=== PATIENT | male | born 1950 | race Caucasian/White ===

== ENCOUNTER 2016-04-07 21:57 | Inpatient (IN) ==
--- NOTE | 2016-04-07 22:48 | Emergency Department Note ---
IJael Kasabria, am scribing for, and in the presence of, Mario Rhodes MD 22:41. ICarmelo Robert M, MD, personally performed the services described in this documentation, ascribed by Giovana Elder in my presence, and it is both accurate and complete . Arrival - Arrival Chief Complaint: Fever ED Nursing Triage Note: C/O Generalized weakness/ Weight loss of approx 40 pounds over the past month. Pt was seen in clinic a couple of weeks ago for the same symptoms and was scheduled for CT Abd/Pelvis which he hasn't had yet. Pt reports that when he woke up he just felt worse. Mode of Arrival: Stretcher Limitations: No Limitations Source: Patient - History of Present Illness HPI Narrative: Pt is a 66 y/o white male presenting to the ED with c/o generalized weakness, weight loss of 40 pounds in 6 weeks, and fever of 103. Pt states this morning it onset as weakness so he laid down. He then woke up with trouble breathing so he got his brother to call EMS. He received fluids and states he now feels better. Pt states his symptoms on February 02, 2016 and have gotten worse. Pt recalls placing towels on his bed due to diaphoresis at night; he states when he wakes the towels are soaked. He received a CT scan without contrast on March 27, 2016 which revealed an abscess to his kidney. Pt was placed on antibiotics because of infection; the course was completed one week ago and now he states the symptoms of weakness have returned. He denies abdominal pain, back pain, FRANK, vision change, dysuria, hematuria, and flank tenderness. PMHx consist of diabetes. Consistency: constant Severity: moderate Allergies/Adverse Reactions: Allergies Allergy/AdvReac Type Severity Reaction Status Date / Time No Known Allergies Allergy Unverified 04/07/16 22:12 Home Medications: Home Medications Medication Instructions Recorded Confirmed Type Lisinopril/Hydrochlorothiazide 2 each PO DAILY 04/07/16 04/07/16 History [Lisinopril-Hctz 20-12.5 mg Tab] Metformin HCl 500 mg PO BID 04/07/16 04/07/16 History Pravastatin [Pravachol] 20 mg PO BEDTIME 04/07/16 04/07/16 History amLODIPine [Norvasc] 10 mg PO DAILY 04/07/16 04/07/16 History Review of System - Review of System 12 point system: reviewed and no additional remarkable complaints except as stated - Review of System Constitutional: Present: chills, diaphoresis (primarily at night ), fever (103) , weakness Eyes: Absent: vision change Head/Ears/Nose/Throat: Absent: earache, nasal drainage, sore throat Respiratory: Absent: cough Cardiovascular: Absent: chest pain, dyspnea on exertion, syncope Gastrointestinal: Absent: abdominal pain, nausea, vomiting, diarrhea Genitourinary male: Absent: dysuria Musculoskeletal: Absent: arm pain, back pain, leg pain, neck pain Skin: Absent: rash, lesions Neurological: Present: weakness. Absent: headache, numbness, confusion, vertigo Psychiatric: Absent: anxiety, depression Endocrine: Absent: fatigue Hematological/Lymphatic: Absent: easy bleeding Allergic/Immunologic: Absent: facial swelling Medical,Surgical,& Family Hx - Medical History Endocrine: History of: Diabetes Mellitus (IDDM) - Social History Smoking Status: Never smoker Frequency of Alcohol Use: None Type of Drug Use: None Exam Vital Signs: Vital Signs Temperature 99.2 F 04/07/16 21:57 Pulse Rate 89 04/07/16 21:57 Respiratory Rate 20 04/07/16 21:57 Blood Pressure 109/76 04/07/16 21:57 O2 Sat by Pulse Oximetry 98 04/07/16 21:57 - General General appearance: alert, in no apparent distress - Head Head exam: Present: atraumatic, normocephalic, normal inspection - Eye Eye exam: Present: normal appearance, PERRL, EOMI - ENT ENT exam: Present: normal exam, normal oropharynx, mucous membranes moist, TM's normal bilaterally, normal external ear exam - Neck Neck exam: Present: normal inspection, full ROM, trachea midline. Absent: tenderness - Chest Chest inspection: Present: normal inspection, symmetric chest wall rise. Absent : tenderness - Respiratory Respiratory exam: Present: normal lung sounds bilaterally - Cardiovascular Cardiovascular exam: Present: regular rate, normal rhythm, normal heart sounds. Absent: murmur - Abdominal Exam Abdominal exam: Present: soft, normal bowel sounds. Absent: distention, tenderness - Extremities Exam Extremities exam: Present: normal inspection, full ROM, normal capillary refill. Absent: tenderness, pedal edema, calf tenderness - Back Exam Back exam: Present: normal inspection, full ROM. Absent: tenderness - Neurological Exam Neurological exam: Present: alert, oriented X3, CN II-XII intact, normal gait, reflexes normal - Psychiatric Psychiatric exam: Present: normal affect, normal mood - Skin Skin exam: Present: warm, dry, intact, normal color. Absent: rash, diaphoresis Course - Consultations Consultation #1: I spoke with Dr. Morales who is the urologist business administration professor and he recommends having the patient admitted to hospitalist. He says he will be happy to consult. Time: 22:47 Consultation #2: The hospitalist will evaluate and admit the patient. Time: 22:47 Disposition Clinical Impression: right renal abscess superior pole Case discussed with: patient, patient's family Disposition: Still a Patient Condition: Stable Time of Disposition: 22:48
[2016-04-08] MEDS ORDERED: DEXTROSE 50% 25 GM/50 ML VIAL IV PRN (01:01)
[2016-04-08] MEDS ORDERED: BISACODYL 5 MG TABLET PO PRN (01:01)
[2016-04-08] MEDS ORDERED: ONDANSETRON 4 MG/2 ML VIAL IV PRN (01:01)
[2016-04-08] MEDS ORDERED: GLUCAGON 1 MG VIAL IM PRN (01:01)
--- NOTE | 2016-04-08 01:13 | Hospitalist History & Physical ---
Assessment and Plan (1) Right renal mass Status: Acute Current Visit: Yes (2) Renal abscess, right Status: Acute Current Visit: Yes (3) Sepsis Status: Acute Current Visit: Yes (4) Type 2 diabetes mellitus Status: Acute Current Visit: Yes (5) Hx of essential hypertension Status: Acute Assessment and plan: Plan: Start IV fluids, broad-spectrum IV antibiotics, obtain blood and urine cultures. We'll consult urology for further workup and recommendations. Supportive care for pain/nausea/fever. Current Visit: Yes History of Present Illness Chief complaint: transfered with fever, R renal mass poss neoplasm or abscess History of present illness: Mr. Morales is a 66 year old male with hypertension and type 2 diabetes, who is here feeling weak, reports 40 lbs wt loss since january, drenching night sweats and fever the past 2 weeks. He states he took antibiotics prescribed by his doctor a week ago and felt better for a short time, however is now back to "feeling weak and ill." He had a temperature of up to 103 at the outside hospital and was tachycardic, however this is improved with fluids and Tylenol. He is currently afebrile in the emergency room. He reports occasional right- sided flank pain, no dysuria. He has reported lack of appetite. A CT abdomen and pelvis showed a complex cystic and solid right upper pole renal mass consistent with neoplasm versus abscess. He does have an elevated white count and fever. Home Medications Medication Instructions Recorded Confirmed Type Lisinopril/Hydrochlorothiazide 2 each PO DAILY 04/07/16 04/07/16 History [Lisinopril-Hctz 20-12.5 mg Tab] Metformin HCl 500 mg PO BID 04/07/16 04/07/16 History Pravastatin [Pravachol] 20 mg PO BEDTIME 04/07/16 04/07/16 History amLODIPine [Norvasc] 10 mg PO DAILY 04/07/16 04/07/16 History Allergies Allergy/AdvReac Type Severity Reaction Status Date / Time No Known Allergies Allergy Unverified 04/07/16 22:12 Medical,Surgical,& Family Hx - Medical History Cardio: History of: Hypertension Endocrine: History of: Diabetes Mellitus (IDDM) - Surgical History HEENT Surgeries: Surgical HX of: Tonsilectomy & Adenoidectomy Abdominal Surgeries: Surgical HX of: Appendectomy - Family History Family History: noncontributory - Social History Smoking Status: Never smoker Frequency of Alcohol Use: None Type of Drug Use: None Marital Status: Unknown Functional capacity: independent ambulation Review of systems: A 12 point review of systems is negative except as specified in the HPI Exam - Constitutional Vitals: Period Temp Pulse Resp BP Sys/Mendoza Pulse Ox Last 24 Hr 99.2 F-99.2 F 78-89 18-20 90-114/48-76 93-98 Exam: EXAM: CONSTITUTIONAL: non toxic, NAD HEENT: NC, AT, OP benign, ETIENNE, EOMI CV: RRR no m/g/r RESP: clear B/L, no w/r/r GI: abd soft, NT, ND, +bowel sounds, minimal right-sided flank pain to tenderness INTEGUMENTARY: no lesions or rash EXTREMITIES: no c/c/e NEURO: no focal deficits PSYCH: unremarkable, A/O x3 Results - Labs CBC & BMP: 04/08/16 02:22 04/08/16 02:22 Lab Results: I have reviewed the past 24 hour labs (outside labs reviewed) - Diagnostic Findings Procedure: CT Abdomen and Pelvis: image reviewed by me, report reviewed by me
[2016-04-08] MEDS: SODIUM CHLORIDE 0.9% 1,000 ML IV SCH ×2 (02:33→10:57)
[2016-04-08] MEDS: PIPERACILLIN/TAZOBACTAM 3,375 MG in SODIUM CHLORIDE 0.9% 100 ML IV SCH ×3 (02:33→18:23)
[2016-04-08 02:36] LABS: Basophils # 0.1 10*3/uL (0.0-0.2); Basophils % 0.8 % (0.0-0.8); Eosinophils % 0.1 % (0.00-10.9); Hematocrit 40.7 VOL% (42.0-52.0); Hemoglobin 13.2 GM/DL (14.0-18.0); Immature Granulocytes % 0.3 %; Immature Granulocytes Absolute 0.03 #; Lymphocytes # 1.2 10*3/uL (1.4-4.0); Lymphocytes % 11.9 % (21.2-54.2); Mean Corpuscular HGB Conc 32.4 GM/DL (32-36); Mean Corpuscular Hemoglobin 28 PG (27-34); Mean Corpuscular Volume 86.8 FL (87-102); Mean Platelet Volume 9.2 FL (9.6-12.0); Monocytes # 0.8 10*3/uL (0.11-0.8); Monocytes % 7.5 % (1.7-12.7); Neutrophils # 8.1 10*3/uL (1.4-7.4); Neutrophils % 79.4 % (38.7-73.9); Platelet Count 380 T/CUMM (130-400); Red Blood Count 4.69 MC/CUMM (3.8-5.5); Red Cell Distribution Width 13.6 % (9.3-17.3); White Blood Count 10.2 T/CUMM (4-12)
[2016-04-08 03:01] LABS: Albumin 3.2 G/DL (3.4-5.0); Bilirubin,Total 0.9 MG/DL (0.2-1.0); Calcium 9.2 MG/DL (8.5-10.1); Osmolality,Calculated 280.3 MOS/KG (273-304); Potassium 4.2 MMOL/L (3.5-5.1); Total Protein 7.8 G/DL (6.4-8.3)
[2016-04-08] MEDS: ACETAMINOPHEN 325 MG TABLET PO PRN (05:33)
[2016-04-08] MEDS ORDERED: VANCOMYCIN INJ 1,000 MG in SODIUM CHLORIDE 0.9% 250 ML IV SCH (06:30)
[2016-04-08] MEDS ORDERED: IBUPROFEN 600 MG TABLET PO ONE (06:45)
--- NOTE | 2016-04-08 08:32 | CT Report ---
Exam: CT abdomen pelvis w con Date: 04/08/2016 4:00 AM Comparison: 04/07/2016 Indication: Right renal mass, fever Technique: Sequential axial scans of the abdomen and pelvis were obtained following the injection of 100 cc Omnipaque 350. Coronal and sagittal 2-D reconstructions were obtained. Total DLP: 2115.90 Findings: The heart is minimally enlarged with cardiac fat pads and coronary artery calcifications. Minimal atelectasis/infiltration/scarring especially in the left lower lobe. The liver is normal in size with fatty infiltration. No masses, dilated ducts, or calcified gallstones are identified. The spleen is borderline size to minimally enlarged. The pancreas, adrenal glands, and left kidney have an unremarkable appearance. No renal or ureteral calculi are identified. 62 x 57 x 57 mm solid appearing right upper pole renal mass with prominent adjacent vasculature. No air within the finding. Calcification in the wall of the nondilated abdominal aorta with no adjacent adenopathy. Very small hiatal hernia with no dilatation of the small bowel. Diverticulosis of the colon with no evidence of diverticulitis or free air. Prior appendectomy. Minimal fluid and/or soft tissue stranding in the mesentery in the left abdominal location just anterior to lower pole of the left kidney. The prostate measures 50 mm in diameter. No definite urinary bladder pathology is identified. Degenerative changes are noted. Impression: 62 x 57 x 57 mm solid mass like density in the upper pole of the right kidney. This finding is most consistent with renal cell carcinoma and less likely renal abscess. The mass appears necrotic with increased vascularity and no invasion of the right renal vein. Minimal cardiomegaly with coronary artery calcifications. Increased fat deposition including fatty infiltration of the liver. The spleen is borderline size to minimally enlarged. Very small hiatal hernia, diverticulosis of colon, and prior appendectomy. Minimal fluid/soft tissue stranding in the mesentery in the left abdominal location just anterior to the lower pole of the left kidney which could be related to possible mesenteritis, etc. PROCEDURE INTERPRETED AT [facility] DEPARTMENT OF RADIOLOGY Final Report Signed by: Dr. Lilliam Ewing
[2016-04-08] MEDS: INSULIN REGULAR 100 UNIT/ML SUBCUT SCH ×4 (10:54→20:31)
[2016-04-08] MEDS: VANCOMYCIN INJ 1,750 MG in SODIUM CHLORIDE 0.9% 500 ML IV SCH ×2 (10:55→20:16)
[2016-04-08] MEDS: PANTOPRAZOLE 40 MG TABLET PO SCH (10:57)
[2016-04-08] MEDS: MORPHINE 2 MG/1 ML SYRINGE IV PRN (10:58)
--- NOTE | 2016-04-08 16:01 | Urology Consultation ---
Assessment and Plan - Time spent with patient Time spent with patient: Greater than 30 minutes Time spent discussing smoking cessation with patient: more than 10 minutes (1) Right renal mass Status: Acute Assessment and plan: I highly suspect that this right renal mass is a necrotic solid right renal cell carcinoma but could be other things including possibly abscess but I believe it is cancer. He has fever, night sweats, and recent weight loss and fatigue could all be associated with this cancer. His blood sugar is not exceedingly [id number] therefore making abscess less likely. It is also possible the he does independently have an infection somewhere causing this fever although his white blood cell count is not significantly elevated. Thank you for this consult. Urology will follow while in house. I have spoken with the patient and would plan on a nonemergent basis to have him follow up with Dr. Bullock to plan for definitive care of this right solid renal mass. Please call with any questions. Current Visit: Yes History of Present Illness - Data of Consult Patient: new to practice Consult date: 04/08/16 Requesting Physician: Gary Garg - Consult Narrative Reason for consult: right renal mass History of present illness: Mr. Morales is a 66 year old male Who presented to an outside hospital yesterday afternoon with a history of feeling progressively weaker over the last 2 weeks along with having fever. He has intermittent right flank pain. He was transferred to [facility] for further evaluation and definitive care. He has had a 40 pound weight loss since January. He has had night sweats and intermittent fever over the last 2 weeks and felt progressively weaker. Otherwise he has no other associated symptoms. Nothing seems to make his right flank discomfort better or worse. When he does have this pursued discomfort it is dull and intermittent. He had a CT scan notable for a right renal mass. Urology was consulted for further definitive care by Dr. Garg and the hospital team. CC: Mariah Clark MD - Home Medications and Allergies Home Medications: Home Medications Medication Instructions Recorded Confirmed Type Lisinopril/Hydrochlorothiazide 2 each PO DAILY 04/07/16 04/08/16 History [Lisinopril-Hctz 20-12.5 mg Tab] Metformin HCl 500 mg PO BID 04/07/16 04/08/16 History Pravastatin [Pravachol] 20 mg PO BEDTIME 04/07/16 04/08/16 History amLODIPine [Norvasc] 10 mg PO DAILY 04/07/16 04/08/16 History Allergies/Adverse Reactions: Allergies Allergy/AdvReac Type Severity Reaction Status Date / Time No Known Allergies Allergy Unverified 04/07/16 22:12 - Constitutional Constitutional: Present: as per HPI, lethargy, malaise, night sweats, weakness, weight loss - EENT Eyes: Present: as per HPI Ears: Present: as per HPI Nose, mouth and throat: Present: as per HPI - Cardiovascular Cardiovascular: Present: as per HPI - Respiratory Respiratory: Present: as per HPI - Gastrointestinal Gastrointestinal: Present: as per HPI - Genitourinary Genitourinary: Present: as per HPI - Musculoskeletal Musculoskeletal: Present: as per HPI - Neurological Neurological: Present: as per HPI - Psychiatric Psychiatric: Present: as per HPI - Endocrine Endocrine: Present: as per HPI - Hematologic/Lymphatic Hematologic/Lymphatic: Present: as per HPI Exam - Constitutional Vitals: Period Temp Pulse Resp BP Sys/Mendoza Pulse Ox Last 24 Hr 98.9 F-100.4 F 102-121 16-20 114-132/67-87 97-99 General appearance: normal weight, no acute distress - Head Head exam: Present: normal inspection, atraumatic - Eye Eye exam: Present: EOMI Pupils: Present: ETIENNE - ENT ENT exam: Present: normal exam, normal external ear exam, normal oropharynx - Neck Neck exam: Present: normal inspection - Respiratory Respiratory exam: Present: clear to auscultation bilaterally - Cardiovascular Cardiovascular exam: Present: regular rate and rhythm - GI/Abdominal GI/Abdominal exam: Present: normal bowel sounds, soft - Genitourinary Genitourinary: scrotum without lesions, cysts, edema or rash, penis with no lesions or discharge - Extremities Exam Extremities exam: Present: normal inspection, full ROM - Back Exam Back exam: Present: normal inspection - Neurological Exam Neurological exam: Present: alert, oriented X3 - Psychiatric Psychiatric exam: Present: normal affect, normal mood - Skin Skin exam: Present: normal color, dry Results - Labs CBC & BMP: 04/08/16 02:22 04/08/16 02:22 Lab Results: I have reviewed the past 24 hour labs - Diagnostic Findings Procedure: CT Abdomen and Pelvis: report reviewed by me (I reviewed the CT notable for a 6.2 cm solid necrotic upper pole exophytic renal mass. It has hypervascularity adjacent to it within the perinephric fat.)
--- NOTE | 2016-04-08 16:31 | ECHO Report ---
Brock Morales Exam Date: 04/08/2016 10:59 Referring Physician: Technologist: Arina CRENSHAW Age: 66 Ht (in): Wt (lb): Gender: M Exam Location: [facility] Echo Indications: HTN, Diabetes, Sepsis, Renal Mass BP: / HR: Rhythm: Sinus Technical Quality: Average IMPRESSIONS Left ventricular ejection fraction is estimated at 50-55%. Grade II diastolic dysfunction Mildly to moderate concentric left ventricular hypertrophy with diastolic dysfunction. Tricuspid regurgitation velocities suggest a PAP of 11 mmHg + RAP. MEASUREMENTS (Male / Female) Normal Values 2D ECHO LV Diastolic Diameter PLAX 4.5 cm 4.2 - 5.9 / 3.9 - 5.3 cm LV Systolic Diameter PLAX 3.3 cm LV Fractional Shortening PLAX 25.8 % IVS Diastolic Thickness 1.4 cm 0.6 - 1.0 / 0.6 - 0.9 cm LVPW Diastolic Thickness 1.3 cm 0.6 - 1.0 / 0.6 - 0.9 cm RV Internal Dim ED PLAX 3.6 cm Aortic Root Diameter 3.0 cm LA Systolic Diameter LX 3.9 cm 3.0 - 4.0 / 2.7 - 3.8 cm DOPPLER TR Peak Velocity 164.0 cm/s TR Peak Gradient 10.8 mmHg FINDINGS Left Ventricle Mildly to moderate concentric left ventricular hypertrophy with diastolic dysfunction. Left ventricular ejection fraction is estimated at 50-55%. Right Ventricle Moderately increased right ventricular size. Right Atrium The right atrium is mildly enlarged. Left Atrium Normal left atrial size. Mitral Valve Mildly thickened mitral valve with mild mitral regurgitation. Aortic Valve Aortic valve sclerosis without stenosis or regurgitation. Tricuspid Valve Morphologically normal tricuspid valve. Mild tricuspid valve regurgitation. Tricuspid regurgitation velocities suggest a PAP of 11 mmHg + RAP. Pulmonic Valve Morphologically normal pulmonic valve. Pericardium Trivial pericardial effusion. Aorta Normal size aortic root and proximal ascending aorta. Angelina Marroquin (Electronically Signed) Final Date: 08 April 2016 14:58
[2016-04-08] MEDS: PRAVASTATIN 20 MG TABLET PO SCH (20:40)
[2016-04-09] MEDS: PIPERACILLIN/TAZOBACTAM 3,375 MG in SODIUM CHLORIDE 0.9% 100 ML IV SCH ×3 (07:24→17:00)
[2016-04-09] MEDS: PANTOPRAZOLE 40 MG TABLET PO SCH (08:57)
[2016-04-09] MEDS: INSULIN REGULAR 100 UNIT/ML SUBCUT SCH ×4 (08:57→22:08)
[2016-04-09] MEDS: VANCOMYCIN INJ 1,750 MG in SODIUM CHLORIDE 0.9% 500 ML IV SCH (13:25)
--- NOTE | 2016-04-09 17:36 | Hospitalist Progress Note ---
Assessment and Plan (1) Right renal mass Status: Acute Assessment and plan: due to possible necrotic solid right renal cell carcinoma to r/o abscess Urology is following.Dr Bullock will be seeing in am to plan for definitive care of this right solid renal mass. Current Visit: Yes (2) Type 2 diabetes mellitus Status: Acute Assessment and plan: stable, continue with current meds Current Visit: Yes (3) Hx of essential hypertension Status: Acute Assessment and plan: stable Current Visit: Yes (4) Sepsis Status: Acute Assessment and plan: this has been ruled out BC-negative, WBC-normal, no fever. plan UA, UC decelerate antibiotics Current Visit: Yes Hospitalist: Subjective Interval history: Patient seen. No new issues. Exam - Constitutional Vitals: Period Temp Pulse Resp BP Sys/Mendoza Pulse Ox Last 24 Hr 97.9 F-98.4 F 79-86 19-20 120-146/63-82 97-98 General appearance: no acute distress - Head Head exam: Present: normal inspection - Respiratory Respiratory exam: Present: clear to auscultation bilaterally - Cardiovascular Cardiovascular exam: Present: regular rate and rhythm - GI/Abdominal GI/Abdominal exam: Present: normal bowel sounds - Extremities Exam Extremities exam: Present: normal inspection Results - Labs CBC & BMP: 04/08/16 02:22 04/08/16 02:22 Lab Results: I have reviewed the past 24 hour labs
[2016-04-09] MEDS: PRAVASTATIN 20 MG TABLET PO SCH (22:07)
[2016-04-10] MEDS: PIPERACILLIN/TAZOBACTAM 3,375 MG in SODIUM CHLORIDE 0.9% 100 ML IV SCH ×3 (01:00→16:52)
[2016-04-10 06:46] LABS: Basophils % 0.7 % (0.0-0.8); Eosinophils # 0.2 10*3/uL (0.0-0.87); Eosinophils % 3.4 % (0.00-10.9); Hematocrit 35.6 VOL% (42.0-52.0); Immature Granulocytes % 0.2 %; Immature Granulocytes Absolute 0.01 #; Lymphocytes # 1.1 10*3/uL (1.4-4.0); Lymphocytes % 18.6 % (21.2-54.2); Mean Corpuscular HGB Conc 31.2 GM/DL (32-36); Mean Corpuscular Hemoglobin 28 PG (27-34); Mean Platelet Volume 9.1 FL (9.6-12.0); Monocytes # 0.7 10*3/uL (0.11-0.8); Monocytes % 12.2 % (1.7-12.7); Neutrophils # 3.7 10*3/uL (1.4-7.4); Neutrophils % 64.9 % (38.7-73.9); Red Blood Count 3.91 MC/CUMM (3.8-5.5); Red Cell Distribution Width 13.5 % (9.3-17.3)
[2016-04-10 06:53] LABS: Hemoglobin 11.1 GM/DL (14.0-18.0); Platelet Count 263 T/CUMM (130-400); White Blood Count 5.7 T/CUMM (4-12)
[2016-04-10 07:16] LABS: Calcium 8.7 MG/DL (8.5-10.1); Magnesium 2.3 MG/DL (1.8-2.4); Osmolality,Calculated 286.6 MOS/KG (273-304); Potassium 4.3 MMOL/L (3.5-5.1)
[2016-04-10] MEDS: PANTOPRAZOLE 40 MG TABLET PO SCH (09:07)
[2016-04-10] MEDS: INSULIN REGULAR 100 UNIT/ML SUBCUT SCH ×4 (10:24→22:10)
--- NOTE | 2016-04-10 14:50 | Hospitalist Progress Note ---
Assessment and Plan (1) Right renal mass Status: Acute Assessment and plan: due to possible necrotic solid right renal cell carcinoma to r/o abscess Urology is following.Dr Bullock to plan for definitive care of this right solid renal mass. Current Visit: Yes (2) Type 2 diabetes mellitus Status: Acute Assessment and plan: stable, continue with current meds Current Visit: Yes (3) Hx of essential hypertension Status: Acute Assessment and plan: stable Current Visit: Yes (4) Sepsis Status: Acute Assessment and plan: this has been ruled out BC-negative, WBC-normal, no fever. plan UA, UC- no growth continue to decelerate antibiotics Current Visit: Yes Hospitalist: Subjective Interval history: Patient seen. No new issues. Exam - Constitutional Vitals: Period Temp Pulse Resp BP Sys/Mendoza Pulse Ox Last 24 Hr 97.4 F-98.1 F 72-93 18-22 122-150/46-90 94-98 General appearance: no acute distress - Eye Eye exam: Present: EOMI - Respiratory Respiratory exam: Present: clear to auscultation bilaterally - Cardiovascular Cardiovascular exam: Present: regular rate and rhythm - GI/Abdominal GI/Abdominal exam: Present: normal bowel sounds - Extremities Exam Extremities exam: Present: normal inspection Results - Labs CBC & BMP: 04/10/16 06:40 04/10/16 06:40 Lab Results: I have reviewed the past 24 hour labs
--- NOTE | 2016-04-10 17:59 | Urology Progress Note ---
Assessment and Plan - Time spent with patient Time spent with patient: Greater than 30 minutes (1) Renal cell carcinoma of right kidney Status: Acute Assessment and plan: Planning hand-assisted laparoscopic right radical nephrectomy on Sunday morning. Current Visit: Yes Urology - PN: Subj Interval history: 66-year-old white male who I'm picking up from on-call urology. Dr. Morales saw the patient. He presented with some flank pain and found to have a necrotic upper pole right renal mass consistent with renal cell carcinoma. CT scan does not reveal any adenopathy does not reveal any vein invasion does not reveal any vena caval invasion. This is clearly a renal cell carcinoma. It is not an abscess. All things considered I discussed our findings and discuss treatment options. I recommended hand-assisted laparoscopic right radical nephrectomy. The procedure was explained at length and in detail. Complications include but are not limited to bleeding requiring transfusion, bowel injury, major vessel injury requiring vascular surgery, recurrent cancer, blood clots, pneumonia, myocardial infarction and possibly even . He understands all this. 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 His sodium and chloride are up a little bit I will repeat those in the morning. Exam - Constitutional Vitals: Period Temp Pulse Resp BP Sys/Mendoza Pulse Ox Last 24 Hr 97.4 F-98.1 F 72-87 18-22 122-149/46-92 94-98 General appearance: morbidly obese - Head Head exam: Present: normal inspection - Respiratory Respiratory exam: Present: clear to auscultation bilaterally - Cardiovascular Cardiovascular exam: Present: regular rate and rhythm - GI/Abdominal GI/Abdominal exam: Present: normal bowel sounds, soft. Absent: distended, firm , guarding, hernia, mass, organomegaly, psoas sign, tenderness, rebound - Genitourinary Genitourinary: scrotum without lesions, cysts, edema or rash, penis with no lesions or discharge, prostate nontender, with no enlargement or nodules - Back Exam Back exam: Present: normal inspection - Neurological Exam Neurological exam: Present: alert, oriented X3, CN II-XII intact - Psychiatric Psychiatric exam: Present: normal affect - Skin Skin exam: Present: normal color, warm Results - Labs CBC & BMP: 04/10/16 06:40 04/10/16 06:40
[2016-04-10] MEDS: PRAVASTATIN 20 MG TABLET PO SCH (22:09)
[2016-04-11] MEDS: PIPERACILLIN/TAZOBACTAM 3,375 MG in SODIUM CHLORIDE 0.9% 100 ML IV SCH ×3 (00:45→16:57)
[2016-04-11 07:01] LABS: Basophils % 0.6 % (0.0-0.8); Eosinophils # 0.2 10*3/uL (0.0-0.87); Eosinophils % 2.4 % (0.00-10.9); Hematocrit 35.4 VOL% (42.0-52.0); Hemoglobin 11.4 GM/DL (14.0-18.0); Immature Granulocytes % 0.3 %; Immature Granulocytes Absolute 0.02 #; Lymphocytes # 1.2 10*3/uL (1.4-4.0); Lymphocytes % 18.2 % (21.2-54.2); Mean Corpuscular HGB Conc 32.2 GM/DL (32-36); Mean Corpuscular Hemoglobin 28 PG (27-34); Mean Corpuscular Volume 87.8 FL (87-102); Monocytes # 0.6 10*3/uL (0.11-0.8); Monocytes % 9.3 % (1.7-12.7); Neutrophils # 4.6 10*3/uL (1.4-7.4); Neutrophils % 69.2 % (38.7-73.9); Platelet Count 299 T/CUMM (130-400); Red Blood Count 4.03 MC/CUMM (3.8-5.5); Red Cell Distribution Width 13.3 % (9.3-17.3); White Blood Count 6.7 T/CUMM (4-12)
[2016-04-11 07:36] LABS: Calcium 8.9 MG/DL (8.5-10.1); Potassium 4.2 MMOL/L (3.5-5.1)
[2016-04-11] MEDS: INSULIN REGULAR 100 UNIT/ML SUBCUT SCH ×4 (08:06→21:04)
[2016-04-11] MEDS: PANTOPRAZOLE 40 MG TABLET PO SCH (09:08)
--- NOTE | 2016-04-11 10:27 | Urology Progress Note ---
Assessment and Plan (1) Renal cell carcinoma of right kidney Status: Acute Assessment and plan: Planning hand-assisted laparoscopic right radical nephrectomy on Sunday morning. Current Visit: Yes Urology - PN: Subj Interval history: Patient is stable. I again discussed a hand-assisted right radical nephrectomy in detail. Due to this being an upper pole tumor I recommended we remove the adrenal. We will also do a neck to me. Risks, complications, outcomes, sequelae , prognosis and alternative therapies were discussed again. Patient understood this and agreed to proceed. We will give his a.m. dose of Zosyn on-call and make preparations for his nephrectomy in the morning. I answered multiple questions. Explained them in great detail. Planning MELVIN right radical nephrectomy in the morning at 730. Exam - Constitutional Vitals: Period Temp Pulse Resp BP Sys/Mendoza Pulse Ox Last 24 Hr 97.4 F-98.4 F 72-89 18-20 130-155/46-92 93-98 Results - Labs CBC & BMP: 04/11/16 06:54 04/11/16 06:54
--- NOTE | 2016-04-11 13:35 | Hospitalist Progress Note ---
Assessment and Plan (1) Right renal mass Status: Acute Assessment and plan: due to possible necrotic solid right renal cell carcinoma to r/o abscess Urology is following.Dr Bullock wants to do hand-assisted laparoscopic right radical nephrectomy in am Current Visit: Yes (2) Type 2 diabetes mellitus Status: Acute Assessment and plan: stable, continue with current meds Current Visit: Yes (3) Hx of essential hypertension Status: Acute Assessment and plan: stable Current Visit: Yes (4) Sepsis Status: Acute Assessment and plan: this has been ruled out BC-negative, WBC-normal, no fever. plan UA, UC- no growth continue to decelerate antibiotics Current Visit: Yes Hospitalist: Subjective Interval history: Patient seen,he is scheduled for a hand-assisted laparoscopic right radical nephrectomy in am. No new complaints. Exam - Constitutional Vitals: Period Temp Pulse Resp BP Sys/Mendoza Pulse Ox Last 24 Hr 97.4 F-98.7 F 80-93 18-20 130-159/75-92 93-98 General appearance: no acute distress - Head Head exam: Present: normal inspection - Respiratory Respiratory exam: Present: clear to auscultation bilaterally - Cardiovascular Cardiovascular exam: Present: regular rate and rhythm - GI/Abdominal GI/Abdominal exam: Present: normal bowel sounds - Extremities Exam Extremities exam: Present: normal inspection Results - Labs CBC & BMP: 04/11/16 06:54 04/11/16 06:54 Lab Results: I have reviewed the past 24 hour labs
--- NOTE | 2016-04-11 16:05 | EKG Report ---
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
[2016-04-11] MEDS: ACETAMINOPHEN 325 MG TABLET PO PRN ×2 (17:00→21:20)
[2016-04-11] MEDS: PRAVASTATIN 20 MG TABLET PO SCH (21:08)
[2016-04-12] MEDS: PIPERACILLIN/TAZOBACTAM 3,375 MG in SODIUM CHLORIDE 0.9% 100 ML IV SCH ×4 (00:30→15:31)
[2016-04-12] MEDS ORDERED: DIAZEPAM 5 MG TABLET PO ONE (05:30)
[2016-04-12] MEDS ORDERED: FAMOTIDINE 20 MG TABLET PO ONE (05:30)
[2016-04-12] MEDS ORDERED: ALVIMOPAN 12 MG CAPSULE PO ONE (06:00)
[2016-04-12] MEDS ORDERED: PROPOFOL 200 MG/20 ML VIAL IV ONE (07:08)
[2016-04-12] MEDS ORDERED: NEOSTIGMINE 10 MG/10 ML VIAL ONE (07:08)
[2016-04-12] MEDS ORDERED: ONDANSETRON 4 MG/2 ML VIAL ONE ×2 (07:08→10:19)
[2016-04-12] MEDS ORDERED: PHENYLEPHRINE 1 MG/10 ML SYRINGE IV ONE (07:08)
[2016-04-12] MEDS ORDERED: ROCURONIUM 100 MG/10 ML VIAL IV ONE (07:08)
[2016-04-12] MEDS ORDERED: GLYCOPYRROLATE 0.4 MG/2 ML VIAL ONE (07:08)
[2016-04-12] MEDS ORDERED: LIDOCAINE 2% 5 ML VIAL ONE (07:08)
[2016-04-12] MEDS: INSULIN REGULAR 100 UNIT/ML SUBCUT SCH ×4 (08:58→20:37)
[2016-04-12] MEDS: PANTOPRAZOLE 40 MG TABLET PO SCH (08:59)
[2016-04-12] MEDS ORDERED: HYDROmorphone 2 MG/1 ML VIAL ONE ×2 (09:56→10:18)
[2016-04-12] MEDS ORDERED: LACTATED RINGERS 1,000 ML IV ONE (09:56)
[2016-04-12] MEDS ORDERED: fentaNYL 100 MCG/2 ML VIAL ONE (09:56)
[2016-04-12] MEDS ORDERED: MIDAZOLAM 2 MG/2 ML VIAL ONE (09:56)
[2016-04-12] MEDS ORDERED: SODIUM CHLORIDE 0.9% 250 ML IV ONE (09:56)
[2016-04-12] MEDS ORDERED: SEVOFLURANE 1 UNIT/15 MINUTE INH ONE (09:57)
[2016-04-12] MEDS ORDERED: ONDANSETRON 4 MG/2 ML VIAL IV PRN (10:08)
[2016-04-12] MEDS ORDERED: HYDROmorphone 2 MG/1 ML VIAL IV PRN (10:08)
--- NOTE | 2016-04-12 10:13 | Operative Note ---
Date of procedure: 04/12/16 Pre-op diagnosis: renal cell carcinoma the right kidney Post-op diagnosis: same Procedure: 66-year-old white male who was admitted the hospital with flank pain. Thought to have a renal abscess. But his workup has revealed a renal cell carcinoma of the right kidney. I discussed a hand-assisted laparoscopic right radical nephrectomy. This procedure was explained at length and in detail. Risks, complications, outcomes, sequelae, prognosis and alternative therapy was thoroughly discussed. Patient understood this and agreed proceed. Patient is brought to the operative suite and induced with general endotracheal anesthetic and placed in left lateral decubitus position and rotated slightly outward. He's been secured with a beanbag and secured to the table. Kidney rest was raised and the table was flexed. He's been prepared and draped in the usual sterile manner. A limited CT scan in approximately the hilum a 8 centimeter GelPort incision is created in the paramedian place. This was carried down sharply through the abdominal wall. The abdominal cavity was entered atraumatically. The incision was extended to its length. Colace provided hemostasis. GelPort was placed and the wound Port was placed about 12 centimeters cephalad to the GelPort and slightly laterally. Port was placed in the right lower quadrant. With inspection of the right colon is adhesed to the abdominal wall. These were taken down with laparoscopic miles using sharp and blunt dissection. White line was then incised. There were some attachments of the liver laterally these were taken down sharply. The anterior fascia was then incised and the this was then carried to the extent that to below the lower pole and up to the upper pole. Beginning at the lower pole fat was dissected through the ureter was identified and double clipped and divided. Dissection was continued medially along the medial border of the kidney with the vena cava and being medial and the kidney laterally vessels were then identified and a vascular stapler was used to come across the vessels. Dissection was continued up above the tumor above the upper pole. This tumor was in the upper pole so I elected to remove the adrenal. Attachments were hemoclipped and divided there was some other attachments that I felt needed vascular stapling and I stapled dose and divided them. Other attachments were either cauterized or hemoclipped and divided. Once the kidney and and adrenal were then freed up the gel cap was removed and the specimen was removed on the back table. The renal fossa was irrigated and drained. There was no significant bleeding. Superior to the renal vein and artery there is another package that was lateral to the vena cava and these were dissected out with sharp dissection. Vessels were hemoclipped and divided and the package was then removed and sent as separate specimen. The flank was then irrigated and drained. Gelfoam was placed up in the adrenal bed and along the vena cava. The colon was then paulino flat and his perspective normal position. GelPort was removed the trocar sites were then closed with a [id number] 0 Monocryl. GelPort was closed with running #1 Monocryl. All wounds were drained after irrigating and hemostasis again checked. Skin close skin clips. Sterile dressings were placed on the wound. Patient was enrolled in the supine position and awakened from general anesthesia having tolerated this procedure extremely well. Patient was then sent to the recovery room in stable condition. All sponge , needle and his counts correct times 2. Anesthesia: GETA Surgeon / Physician: Britton Bullock Estimated blood loss: other (50cc) Specimens: other (kidney with associated adrenal gland, pericaval nodes) Condition: stable Disposition: PACU Results - Labs CBC & BMP: 04/11/16 06:54 04/11/16 06:54 Discharge Plan - Discharge Medications No Action amLODIPine [Norvasc] 10 mg PO DAILY Lisinopril/Hydrochlorothiazide [Lisinopril-Hctz 20-12.5 mg Tab] 2 each PO DAILY Pravastatin [Pravachol] 20 mg PO BEDTIME Metformin HCl 500 mg PO BID - Follow Up or Referral - Forms/Instructions
[2016-04-12] MEDS ORDERED: LACTATED RINGERS 1,000 ML IV SCH (10:30)
--- NOTE | 2016-04-12 11:56 | Urology Progress Note ---
Assessment and Plan (1) Renal cell carcinoma of right kidney Status: Acute Assessment and plan: Planning hand-assisted laparoscopic right radical nephrectomy on Sunday morning. Current Visit: Yes Urology - PN: Subj Interval history: Postoperative check. He is awake and alert. Urine is clear. Vital signs stable. Patient is stable. Exam - Constitutional Vitals: Period Temp Pulse Resp BP Sys/Mendoza Pulse Ox Last 24 Hr 97.5 F-99.9 F 81-102 16-28 123-161/64-97 93-100 Results - Labs CBC & BMP: 04/11/16 06:54 04/11/16 06:54
--- NOTE | 2016-04-12 14:02 | Hospitalist Progress Note ---
Assessment and Plan (1) Right renal mass Status: Acute Assessment and plan: due to possible necrotic solid right renal cell carcinoma to r/o abscess s/p hand-assisted laparoscopic right radical nephrectomy today Current Visit: Yes (2) Type 2 diabetes mellitus Status: Acute Assessment and plan: stable, continue with current meds Current Visit: Yes (3) Hx of essential hypertension Status: Acute Assessment and plan: stable Current Visit: Yes (4) Sepsis Status: Acute Assessment and plan: this has been ruled out BC-negative, WBC-normal, no fever. plan UA, UC- no growth -consider de-escalating antibiotics Current Visit: Yes Hospitalist: Subjective Interval history: Patient seen. He a hand-assisted laparoscopic right radical nephrectomy this am. He currently feels great and has no pain. Exam - Constitutional Vitals: Period Temp Pulse Resp BP Sys/Mendoza Pulse Ox Last 24 Hr 97.5 F-99.9 F 67-102 16-28 123-161/64-97 93-100 General appearance: no acute distress - Head Head exam: Present: normal inspection - Respiratory Respiratory exam: Present: clear to auscultation bilaterally - Cardiovascular Cardiovascular exam: Present: regular rate and rhythm - GI/Abdominal GI/Abdominal exam: Present: normal bowel sounds - Extremities Exam Extremities exam: Present: normal inspection Results - Labs CBC & BMP: 04/11/16 06:54 04/11/16 06:54 Lab Results: I have reviewed the past 24 hour labs
--- NOTE | 2016-04-12 14:17 | Anesthesia ---
Anesthesia Post OP - Post Ansesthetic Evaluation Patient seen in post op: Yes Resp: within normal limits CV: within normal limits Mental: within normal limits Temp: within normal limits [id number]: within normal limits Nausea and Vomiting: within normal limits Pain: within normal limits
[2016-04-12] MEDS: MORPHINE 2 MG/1 ML SYRINGE IV PRN (17:50)
[2016-04-12] MEDS: PRAVASTATIN 20 MG TABLET PO SCH (20:36)
[2016-04-13] MEDS: PIPERACILLIN/TAZOBACTAM 3,375 MG in SODIUM CHLORIDE 0.9% 100 ML IV SCH ×3 (00:27→17:55)
[2016-04-13] MEDS: ACETAMINOPHEN 325 MG TABLET PO PRN ×2 (03:13→08:30)
[2016-04-13] MEDS: LISINOPRIL/HCTZ 20-12.5 MG TABLET PO SCH (08:30)
[2016-04-13] MEDS: PANTOPRAZOLE 40 MG TABLET PO SCH (08:31)
[2016-04-13] MEDS: INSULIN REGULAR 100 UNIT/ML SUBCUT SCH ×4 (08:31→21:18)
[2016-04-13 09:24] LABS: Basophils # 0.1 10*3/uL (0.0-0.2); Basophils % 0.5 % (0.0-0.8); Eosinophils # 0.1 10*3/uL (0.0-0.87); Eosinophils % 0.9 % (0.00-10.9); Hematocrit 38.8 VOL% (42.0-52.0); Hemoglobin 12.2 GM/DL (14.0-18.0); Immature Granulocytes % 0.5 %; Immature Granulocytes Absolute 0.06 #; Lymphocytes # 1.5 10*3/uL (1.4-4.0); Lymphocytes % 12.8 % (21.2-54.2); Mean Corpuscular HGB Conc 31.4 GM/DL (32-36); Mean Corpuscular Hemoglobin 28 PG (27-34); Mean Corpuscular Volume 89.2 FL (87-102); Mean Platelet Volume 9.4 FL (9.6-12.0); Monocytes # 1.1 10*3/uL (0.11-0.8); Monocytes % 9.3 % (1.7-12.7); Platelet Count 435 T/CUMM (130-400); Red Blood Count 4.35 MC/CUMM (3.8-5.5); Red Cell Distribution Width 13.8 % (9.3-17.3); White Blood Count 11.9 T/CUMM (4-12)
[2016-04-13 09:55] LABS: Albumin 3.1 G/DL (3.4-5.0); Bilirubin,Total 1.3 MG/DL (0.2-1.0); Calcium 9.6 MG/DL (8.5-10.1); Osmolality,Calculated 272.7 MOS/KG (273-304); Potassium 4.5 MMOL/L (3.5-5.1); Total Protein 7.5 G/DL (6.4-8.3)
--- NOTE | 2016-04-13 10:19 | Urology Progress Note ---
Assessment and Plan (1) Renal cell carcinoma of right kidney Status: Acute Assessment and plan: Planning hand-assisted laparoscopic right radical nephrectomy on Sunday morning. Current Visit: Yes Urology - PN: Subj Interval history: The patient had a stable night. H&H is 12 and 35. Creatinine is 1.1. Gastritis. He is voiding okay. Abdomen is soft with expected incisional tenderness. Dressings are dry and intact. Pathology report is pending. He needs to ambulate. We will offer him a laxative. Exam - Constitutional Vitals: Period Temp Pulse Resp BP Sys/Mendoza Pulse Ox Last 24 Hr 96.6 F-100.2 F 67-89 16-23 123-154/71-86 94-99 Results - Labs CBC & BMP: 04/13/16 08:55 04/13/16 08:55
--- NOTE | 2016-04-13 10:46 | Hospitalist Progress Note ---
Assessment and Plan (1) Right renal mass Status: Acute Assessment and plan: due to possible necrotic solid right renal cell carcinoma to r/o abscess s/p hand-assisted laparoscopic right radical nephrectomy, patient is doing great postop.Dressings are dry and intact. Current Visit: Yes (2) Type 2 diabetes mellitus Status: Acute Assessment and plan: stable, continue with current meds Current Visit: Yes (3) Hx of essential hypertension Status: Acute Assessment and plan: stable Current Visit: Yes (4) Sepsis Status: Acute Assessment and plan: this has been ruled out BC-negative, WBC-normal, no fever. plan UA, UC- no growth -consider de-escalating antibiotics Current Visit: Yes Hospitalist: Subjective Interval history: Patient seen. He feels great, no new complaint.Pathology report is pending. Exam - Constitutional Vitals: Period Temp Pulse Resp BP Sys/Mendoza Pulse Ox Last 24 Hr 96.6 F-100.2 F 67-88 16-20 126-154/72-86 94-99 General appearance: no acute distress - Head Head exam: Present: normal inspection - Respiratory Respiratory exam: Present: clear to auscultation bilaterally - Cardiovascular Cardiovascular exam: Present: regular rate and rhythm - GI/Abdominal GI/Abdominal exam: Present: normal bowel sounds - Extremities Exam Extremities exam: Present: normal inspection Results - Labs CBC & BMP: 04/13/16 08:55 04/13/16 08:55 Lab Results: I have reviewed the past 24 hour labs
--- NOTE | 2016-04-13 11:44 | Pathology Report from [facility] ---
ACCESSION # : [id number] PATIENT NAME : Jayde Pate ORDERING DR : JAHAIRA HERNÁNDEZ MD CLINICAL HX: Right renal cell carcinoma POST-OP DX: Same SPECIMEN INFO: #1 Right kidney #2 pericaval node GROSS DESCRIPTION: The specimen is received in formalin labeled with the patient 's name Jayde Pate in 2 parts. The first labeled #1 Consists of a kidney measuring 14.8 x 6.0 cm. The ureter measures 6.5 cm. Dissecting the kidney reveals a circumscribed yellowish tumor mass involving the upper pole which measures 6.5 x 5.0 cm. Grossly the tumor extends to the renal capsule and has overlying layer of perirenal fat measuring up to 3.0 cm in thickness. Grossly the tumor does not involve the renal pelvis. An adrenal gland is received with the specimen measuring 4.5 x 1.5 cm. Sections 1 A-Ureter and vascular margins, 1 B-D-Tumor, 1 E-Fatty margin overlying tumor, 1 F-Normal kidney, 1 G-Adrenal gland.#2 is a fragment of fatty tissue measuring 2.5 x 1.5 cm. sectioning reveals a possible lymph node measuring 0.8 x 0.7 cm. Submitted in #2. DIAGNOSIS FOR JAYDE PATE: #1 RIGHT / LEFT KIDNEY, RADICAL NEPHRECTOMY: TYPE: Renal cell carcinoma, clear cell type. SIZE: 6.5 x 6.0 cm. EMMETT GRADE 2. MARGINS: Uninvolved. SITE: Upper pole. FOCALITY: Unifocal. MACROSCOPIC EXTENT : Tumor limited to kidney. SARCOMATOID FEATURES: Not identified. TUMOR NECROSIS: Not identified. MICROSCOPIC EXTENT: Tumor limited to kidney. LYMPH NODES: Number examined: 0; Number involved: 0. FINDINGS IN KIDNEY: Interstitial chrinic inflammation. AJCC PATHOLOGIC STAGE I ([id number]).#2 PERICAVAL NODE: Ganglion; no lymph nodes found. SERVICE DATE: 04/12/2016 REPORT DATE: 04/13/2016 PATHOLOGIST: Rosangela Junior
[2016-04-13] MEDS: MORPHINE 2 MG/1 ML SYRINGE IV PRN ×2 (16:06→20:29)
[2016-04-13] MEDS: PRAVASTATIN 20 MG TABLET PO SCH (20:37)
[2016-04-13] MEDS: metFORMIN 500 MG TABLET PO SCH (20:41)
[2016-04-14] MEDS: PIPERACILLIN/TAZOBACTAM 3,375 MG in SODIUM CHLORIDE 0.9% 100 ML IV SCH ×2 (02:09→10:38)
[2016-04-14] MEDS: ACETAMINOPHEN 325 MG TABLET PO PRN (06:12)
[2016-04-14 07:33] VITALS: BP 134/74
[2016-04-14] MEDS: INSULIN REGULAR 100 UNIT/ML SUBCUT SCH ×2 (07:44→11:09)
--- NOTE | 2016-04-14 08:33 | Urology Progress Note ---
Assessment and Plan (1) Renal cell carcinoma of right kidney Status: Acute Assessment and plan: Planning hand-assisted laparoscopic right radical nephrectomy on Sunday morning. Current Visit: Yes Urology - PN: Subj Interval history: Patient is doing well. Dressings are removed and his wounds are healing well. As far as I am concerned he can be discharged. I will make an appointment to see me in 2 weeks. His pathology report revealed confined cancer. No nodes found. What was a ganglion. His prognosis is good. I will write a prescription for Narco 7.5 milligrams, #15, 1 by mouth every 4-6 hours when necessary pain. Minimal activity no heavy lifting driving riding or straining. And again, I will see him in 2 weeks. Exam - Constitutional Vitals: Period Temp Pulse Resp BP Sys/Mendoza Pulse Ox Last 24 Hr 97.4 F-98.7 F 81-90 16-20 114-144/71-80 91-99 Results - Labs CBC & BMP: 04/13/16 08:55 04/13/16 08:55
--- NOTE | 2016-04-14 09:39 | Discharge Summary ---
<Ольга Britton - Last Filed: 04/14/16 09:25> Hospital Course - Hospital Course Hospital Course: Ms. Morales was admitted on 04/08 with a right renal mass with abscess, type 2 DM, and hx of essential HTN. He was initially thought to be septic but this was ruled out. He was started on IV fluids, broad spectrum IV abx, and urine and blood cx's were obtained. Urine and blood cx's both were negative. He was very weak, and complained of a 40 lb weight loss, night sweats and fever x 2 weeks. He had a temp of 103 and tachycardia at OSH prior to being transferred to our facility. CT abdomen showed complex cystic and solid right upper pole renal mass c/w neoplasm vs abscess. Urology was consulted and Dr. Arcadio Morales saw on 04/08. He felt that his mass is a necrotic solid right renal cell carcinoma. On 04/12, Dr. Britton Bullock took Mr. Morales to the oR for a right nephrectomy. Pathology returned as renal cell carcinoma, clear cell type. Mr. Morales has improved and is ready for discharge home today on appropriate medications and follow up. - Time spent with patient Time with patient DS: Greater than 30 minutes (due to plan, doc and med rec.) Diagnosis - Discharge Diagnosis (1) Renal cell carcinoma of right kidney Status: Acute (2) s/p right nephrectomy Status: Acute (3) Hx of essential hypertension Status: Acute (4) Type 2 diabetes mellitus Status: Acute Specialty Discharge - Follow Up or Referrals Follow up with: Britton Bullock MD [Physician] - 05/04/16 1:00 pm Discharge Plan - Discharge Data Disposition: Disch To Home/Self Care - Discharge Medications New HYDROcodone/ACETAMIN 5-325 [Dane 5-325] 1 tablet PO Q4H PRN #20 tablet PRN Reason: Pain Mild (1-3) Acetaminophen Tab [Tylenol Tab] 325 mg PO Q4H PRN #0 tablet PRN Reason: fever, headache/body aches Pantoprazole Tab [Protonix Tab] 40 mg PO DAILY #30 tablet Continue amLODIPine [Norvasc] 10 mg PO DAILY Lisinopril/Hydrochlorothiazide [Lisinopril-Hctz 20-12.5 mg Tab] 2 each PO DAILY Pravastatin [Pravachol] 20 mg PO BEDTIME Metformin HCl 500 mg PO BID - Follow Up or Referral Follow Up: Britton Bullock MD [Physician] - 05/04/16 1:00 pm - Forms/Instructions Exam - Constitutional Vitals: Period Temp Pulse Resp BP Sys/Mendoza Pulse Ox Last 24 Hr 97.4 F-98.7 F 81-90 16-20 114-144/71-80 91-99 Discharge Results Labs on day of discharge: Labs from last 24 hours 04/14/16 04/13/16 04/13/16 05:26 20:40 17:08 POC Glucose 101 114 H 107 H 04/13/16 11:10 POC Glucose 103 DS: Provider Date of admission: 04/08/16 01:01 Primary care physician: . No PCP Attending physician on admission: Mariah Clark MD Consults: 04/08/16 02:31 Consult to Pharmacy [CONS] Routine Reason for Pharmacy Consult: Dose/Manage Vancomycin 04/08/16 03:04 Consult to Dietitian [CONS] Routine Reason for Dietitian: Dietary Consult 04/13/16 22:01 Consult to Case Mgmt/Social Srvs [CONS] Routine Reason for Case Mgmt/Social Srvs: Other Consult to Dietitian [CONS] Routine Reason for Dietitian: Diet Recommendations Diet Instruction 04/14/16 07:24 Consult to [facility], Educator [CONS] Routine Reason for Skip Hoist Operator: Other Discharging clinician: Ольга Britton NP Expected date of discharge: 04/14/16 <Mariah Clark - Last Filed: 04/14/16 10:21> Hospital Course - Time spent with patient Time with patient DS: Greater than 30 minutes Diagnosis - Discharge Diagnosis (1) Right renal mass Status: Acute (2) Type 2 diabetes mellitus Status: Acute (3) Hx of essential hypertension Status: Acute (4) Sepsis Status: Acute Discharge Plan - Discharge Data Condition at Discharge: Stable Discharge Diet: diabetic diet Activity: resume usual activities as tolerated - Forms/Instructions Additional Discharge Instructions: Follow with PCP in 1weeek, follow with Urology as scheduled Exam - Constitutional General appearance: no acute distress - Head Head exam: Present: normal inspection - Respiratory Respiratory exam: Present: clear to auscultation bilaterally - Cardiovascular Cardiovascular exam: Present: regular rate and rhythm - GI/Abdominal GI/Abdominal exam: Present: normal bowel sounds
[2016-04-14] MEDS: metFORMIN 500 MG TABLET PO SCH (10:09)
[2016-04-14] MEDS: LISINOPRIL/HCTZ 20-12.5 MG TABLET PO SCH (10:10)
[2016-04-14] MEDS: PANTOPRAZOLE 40 MG TABLET PO SCH (10:10)
== END 2016-04-14 11:20 | disposition home or self-care (01) | DRG 658 ==
LOC: N.ED 21:57 → N.EDINP 04-08 01:01 → N.5E 04-08 01:54
PROVIDERS: ADMIT Internal Medicine; ATTEND Internal Medicine